=== PATIENT | male | born 1940 | race Caucasian/White ===

== ENCOUNTER 2020-08-06 08:51 | Outpatient (CLI) | payer MEDICARE, SELFPAY ==
--- NOTE | ~2020-08-06 | XR_ITS ---
EXAMINATION: XR lumbar spine min 4V DATE: 08/06/2020 10:17 INDICATION: Low back pain. TECHNIQUE: 7 views of lumbar spine including flexion and extension views were obtained. COMPARISON: None. FINDINGS: Bone alignment is normal. The spine is hypomobile with flexion and extension. Vertebral bod y heights are normal. There is mildly decreased disc height at L1-L2 and L2-L3, moderately decreased disc height at L3-L4 and L4-L5, and mildly decreased disc height at L5-S1. 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 IMPRESSION: 1. Moderate lumbar spondylosis. Reviewed, dictated and finalized at location A. Y LEARNING TEACHER
--- NOTE | ~2020-08-06 | CT_ITS ---
EXAMINATION: CT brain wo/w con DATE: 08/06/2020 10:06 INDICATION: Lack of coordination post procedure. TECHNIQUE: Computed tomography (CT) of the head was performed without and with 100 mL Omnipaque 350 i ntravenous contrast. The mA was adjusted according to patient size. Iterative reconstruction techniqu e was employed. The dose-length product was 1210.67 mGy-cm. COMPARISON: None FINDINGS: There are scattered areas of low attenuation in the cerebral white matter. There is a 6 mm hyperdense mass in the anterior third ventricle at the foramen of Monro, consistent with a colloid cy st. There is no intracranial hemorrhage or acute ischemic infarct. The ventricles are normal in size. There is mild mucosal thickening in the paranasal sinuses. The orbits are normal. The mastoid air ce lls are normal. IMPRESSION: 1. Moderate nonspecific cerebral white matter disease, which likely represents chronic small vessel i schemic disease. 2. 6 mm hyperdense mass in the anterior third ventricle, consistent with a colloid cyst. Reviewed, dictated and finalized at location A. OR LINUX ADMINISTRATOR IMPRESSION: 1. Moderate nonspecific cerebral white matter disease, which likely represents chronic small vessel ischemic disease. 2. 6 mm hyperdense mass in the anterior third ventricle, consistent with a sabiha oid cyst.
--- NOTE | ~2020-08-06 | CT_ITS ---
EXAMINATION: CT cervical spine [facility] EXAM DATE: 08/06/2020 10:06 INDICATION: R27.8 - Other lack of coordination . TECHNIQUE: Spiral CT of the cervical spine was performed without contrast. Axial images were reviewe d. Coronal and sagittal reformatted images were also reviewed. The dose-length product (DLP) for thi s examination was 367.15 mGy-cm. The exposure was tailored according to patient size (auto mA exposu re control), and iterative reconstruction (ASIR) was used as additional dose reduction technique. Th ere is no prior study for comparison. FINDINGS: Posterior fusion of the facet joints, spinous process with cerclage wire from C4-C7. Parti al osseous solid bone bridging of these vertebral bodies as well. The vertebral bodies are aligned in the AP dimension. There is moderate to severe loss of the C3-4 disc height, moderate at C2-3 and C4- 5. The odontoid process is intact. The lateral masses of C1 line up with C2. Prevertebral soft tissu e and pre-dens space are within normal limits. There are no acute fractures identified. There are layering bilateral pleural effusions. Level by level evaluation: C2-C3: There is a mild diffuse disc bulge. Uncovertebral joint arthropathy: Mild bilateral. Facet joint arthropathy: Mild bilateral. Neural foraminal stenosis: No stenosis. Central canal stenosis: No stenosis. C3-C4: There is a mild diffuse disc bulge. Uncovertebral joint arthropathy: Mild to moderate bilateral. Facet joint arthropathy: Severe left, moderate right. Neural foraminal stenosis: Moderate to severe left, moderate right. Central canal stenosis: Mild. C4-C5: There is a mild diffuse disc bulge. Uncovertebral joint arthropathy: Mild to moderate left, mild right. Facet joint arthropathy: Moderate bilateral. Neural foraminal stenosis: Mild left. Central canal stenosis: Mild. C5-C6: Disc does not extend beyond the endplate margin. Uncovertebral joint arthropathy: Mild to moderate. Facet joint arthropathy: Mild to moderate, fused. Neural foraminal stenosis: Mild left. Central canal stenosis: No stenosis. C6-C7: Disc does not extend beyond the endplate margin. Uncovertebral joint arthropathy: Moderate right, mild left. Facet joint arthropathy: Mild to moderate, fused. Neural foraminal stenosis: Mild to moderate right. Central canal stenosis: No stenosis. C7-T1: There is a mild diffuse disc bulge. Uncovertebral joint arthropathy: Mild to moderate. Facet joint arthropathy: Mild, fused. Neural foraminal stenosis: No stenosis. Central canal stenosis: No stenosis. IMPRESSION: 1. Cervical posterior fusion C4-7. 2. Multilevel spondylosis with the left C3-4 neural foramina most narrowed 3. No significant central canal stenosis. 4. Layering bilateral pleural effusions. Reviewed, dictated and finalized at location B. E GRADER
--- NOTE | ~2020-08-06 | US_ITS ---
EXAMINATION: US venous doppler [facility] DATE: 08/06/2020 09:47 INDICATION: Lower limb swelling TECHNIQUE: Taylor scale images without and with compression and Doppler images of the bilateral lower e xtremity veins were obtained. COMPARISON: None FINDINGS: The right common femoral vein, profunda femoral vein, femoral vein, popliteal vein, peroneal trunk, p osterior tibial veins, and greater saphenous vein are patent. The left common femoral vein, profunda femoral vein, femoral vein, popliteal vein, peroneal trunk, po sterior tibial veins, and greater saphenous vein are patent. IMPRESSION: 1. Patent bilateral lower extremity veins. No evidence of deep venous thrombosis. Reviewed, dictated and finalized at location A. E TECHNICIAN IMPRESSION: 1. Patent bilateral lower extremity veins. No evidence of deep venous thrombosi s.
[2020-08-06 09:07] LABS: Basophils Absolute Auto 0.1 K/mm3 (0.0-0.1); Basophils Percent Auto 0.9 % (0.2-1.2); Eosinophils Percent Auto 0.7 % (0-4.4); Hematocrit 35.1 % (42.0-52.0); Hemoglobin 10.8 g/dL (14.0-18.0); Immature Granulocyte Absolute 0.02 K/mm3 (0.00-0.031); Immature Granulocyte Percent A 0.3 % (0-0.5); Lymphocytes Absolute Auto 1.08 K/mm3 (0.9-3.2); Lymphocytes Percent Auto 18.8 % (18.3-44.2); Mean Corpuscular HGB Conc 30.8 g/dl (32-36); Mean Corpuscular Hemoglobin 26.9 pg (26-34); Mean Corpuscular Volume 87.5 fl (80-100); Mean Platelet Volume 8.4 fl (7.4-10.4); Monocytes Absolute Auto 0.6 K/mm3 (0.1-0.6); Monocytes Percent Auto 10.6 % (2.6-8.5); Neutrophils Percent Auto 68.7 % (45.5-73.1); Platelet Count Result 486 k/mm3 (150-375); Red Blood Count 4.01 M/mm3 (4.6-6.20); Red Cell Distribution Width 13.9 % (11.5-14.5); White Blood Count 5.8 K/mm3 (4.5-10.0)
[2020-08-06 09:21] LABS: Anion Gap 5 mmol/L (8-16); Blood Urea Nitrogen 24 mg/dL (9-20); Calcium 8.7 mg/dL (8.4-10.2); Carbon Dioxide 29 mmol/L (22-30); Chloride 104 mmol/L (98-107); Estimated Glomerular Filt Rate > 60; Glucose 99 mg/dL (75-110); Potassium 4.5 mmol/L (3.4-5.0); Sodium 138 mmol/L (137-145)
[2020-08-06 10:18] LABS: Free T4 Free Thyroxine 0.71 ng/mL (0.78-2.19)
[2020-08-06 12:04] LABS: Folic Acid > 20.0 ng/mL (2.76->20)
[2020-08-10 05:57] LABS: Vitamin B6 3.1 ng/mL (2.1-21.7)
[2020-08-11 11:52] LABS: Vitamin B1 <6 nmol/L (8-30)
== END 2020-08-06 08:52 | disposition home or self-care (01) ==
PROVIDERS: PCP Internal Medicine; Visit Provider Internal Medicine
DX: R27.8 Other lack of coordination (principal); R90.82 White matter disease, unspecified; G93.9 Disorder of brain, unspecified; Z86.711 Personal history of pulmonary embolism; R29.2 Abnormal reflex; R60.0 Localized edema; Z98.1 Arthrodesis status; M47.813 Spondylosis without myelopathy or radiculopathy, cervicothoracic region; M48.03 Spinal stenosis, cervicothoracic region; J90 Pleural effusion, not elsewhere classified; M47.817 Spondylosis without myelopathy or radiculopathy, lumbosacral region
CPT/HCPCS: 36415; 70470; 72110; 72125; 80048; 82607; 82746; 84207; 84425; 84439; 84443; 85025; 93970; Q9967

== ENCOUNTER 2020-08-10 11:24 | Outpatient (CLI) | payer MEDICARE, SELFPAY ==
--- NOTE | ~2020-08-10 | XR_ITS ---
EXAMINATION: XR chest 2V w RT decubitus EXAM DATE: 08/10/2020 12:15 INDICATION: Z86.711 - Personal history of pulmonary embolism. TECHNIQUE: Frontal and lateral projections of the chest obtained and reviewed. Right lateral decubitu s projection. There is no prior study for comparison. FINDINGS: Small to moderate right, small pleural effusions. On the right lateral decubitus, slight s hifting of the right pleural effusion laterally, probably partially loculated. There is cardiomegaly. There is no pneumothorax suspected. No evidence of acute airspace disease. Wire like foreign body over the left anterior chest wall superficially, mid clavicular line measuring about 1 cm in length. There are mild bony degenerative changes. There is aortic arteriosclerosis. IMPRESSION: 1. Mild to moderate right partially loculated pleural effusion. 2. Small pleural effusion. 3. Cardiomegaly. Reviewed, dictated and finalized at location A. H PAINTER
[2020-08-10 12:17] LABS: Iron 19 ug/dL (49-181)
[2020-08-10 12:26] LABS: Percent Iron Saturation 6 % (20-50)
== END 2020-08-10 11:25 | disposition home or self-care (01) ==
LOC: ANHLAB 11:27
PROVIDERS: PCP Internal Medicine; Visit Provider Internal Medicine
DX: D64.9 Anemia, unspecified (principal); R06.02 Shortness of breath; Z86.711 Personal history of pulmonary embolism; J90 Pleural effusion, not elsewhere classified; I51.7 Cardiomegaly
CPT/HCPCS: 36415; 71047; 82728; 83540; 83550

== ENCOUNTER 2020-08-13 07:17 | Outpatient (NON) | payer MEDICARE, SELFPAY ==
[2020-08-13 09:24] LABS: IFOB Positive Control Positive; Immunochemical Fecal Occult Bl Negative (N)
== END 2020-08-13 07:18 ==
PROVIDERS: PCP Internal Medicine; Visit Provider Internal Medicine
DX: D64.9 Anemia, unspecified (principal)
CPT/HCPCS: 82274